=== PATIENT | male | born 1980 | race Caucasian/White ===

== ENCOUNTER 2018-01-13 03:31 | Inpatient (IN) | payer OTHER, MEDICAID ==
[2018-01-12 20:00] VITALS: BP_SYST 139
[~2018-01-13] VITALS: Ht 170.2 cm; Wt 71.7 kg
[~2018-01-13 03:31] MED LIST: ATEN50TA PO; CITA40TA22 PO; IBUP-1017 PO; NEU300 PO; VENL150C2 PO
--- NOTE | 2018-01-13 03:33 | NUR ---
Placed in room 6 . Placed on teletypesetter monitor, blood pressure machine and pulse oximeter. To gown for exam. Side rails up.
--- NOTE | 2018-01-13 03:33 | NUR ---
Patient AAOx4, ambulatory. Patient states having a sudden onset of chest pain which started approximately 2 hours prior to ER visit. Patient also states having SOB at this time. Patient states current pain scale 8/10 at this time with a sharp sensation to center of chest. Patient states pain radiates to right shoulder. Patient denies dizziness, nausea, and vomiting at this time. Patient denies cough and denies any other complaints.
[2018-01-13 03:37] VITALS: BP_SYST 155
--- NOTE | 2018-01-13 03:50 | NUR ---
# 20 gauge angiocath placed to left AC. Use of asceptic technique. Opsite placed over site. Blood return noted. Blood for lab drawn from site. Flushed with 10 cc of normal saline. No evidence of infiltration noted. Patient tolerated well.
--- NOTE | 2018-01-13 03:58 | NUR ---
JODY Varner at bedside examining patient.
[2018-01-13 04:28] LABS: BILIRUBIN,URINE NEGATIVE (NEGATIVE); BLOOD, URINE NEGATIVE (NEGATIVE); CLARITY/URINE CLEAR (CLEAR); COLOR,URINE YELLOW (YELLOW); GLUCOSE,URINE NEGATIVE (NEGATIVE); KETONES,URINE NEGATIVE (NEGATIVE); LEUKOCYTE ESTERASE ,URINE NEGATIVE (NEGATIVE); NITRITE, URINE NEGATIVE (NEGATIVE); PROTEIN URINE TRACE (NEGATIVE)
[2018-01-13] MEDS ORDERED: WELSR100 PO (04:28)
--- NOTE | 2018-01-13 04:29 | NUR ---
Medication reconciliation completed with information provided by patient. Any prior medication reconciliation on file was reviewed and corrected.
[2018-01-13] MEDS ORDERED: ASPIRIN 81 MG TAB.CHEW PO ONE (04:30)
[2018-01-13 04:36] LABS: BASOPHILS # (AUTO) 0.1 K/uL (0.0-0.2); BASOPHILS % (AUTO) 0.9 % (0.0-2.0); EOSINOPHILS % (AUTO) 0.1 % (0.0-4.0); HEMOGLOBIN 14.4 g/dL (14.0-18.0); LYMPHOCYTES # (AUTO) 1.3 K/uL (1.0-5.5); LYMPHOCYTES % (AUTO) 17.4 % (20.5-51.5); MEAN CORPUSCULAR HEMOGLOBIN 27 pg (27-31); MEAN CORPUSCULAR HGB CONC 33 % (32-36); MEAN CORPUSCULAR VOLUME 84 fL (79.0-98.0); MONOCYTES # (AUTO) 0.8 K/uL (0.0-1.0); MONOCYTES % (AUTO) 11.3 % (1.7-9.3); NEUTROPHILS # (AUTO) 5.2 K/uL (1.8-7.7); NEUTROPHILS % (AUTO) 70.3 % (40.0-70.0); PLATELET COUNT (AUTO) 385 K/uL (130-430); RED BLOOD CELL COUNT(AUTO) 5.26 MIL/uL (4.2-6.2); RED CELL DISTRIBUTION WIDTH 16.3 % (9.0-15.0); WHITE BLOOD COUNT (AUTO) 7.4 K/uL (4.8-10.8)
[2018-01-13 04:43] LABS: ANION GAP 10 (5-15); CALCIUM 9.5 mg/dL (8.4-11.0); CHLORIDE 103 mmol/L (98-107); CREATININE 1.09 mg/dL (0.55-1.30); GLUCOSE 92 mg/dL (70-99); POTASSIUM 3.4 mmol/L (3.5-5.1); SODIUM SERUM 142 mmol/L (136-145); UREA NITROGEN, BLOOD 10 mg/dL (8-21)
[2018-01-13 04:45] LABS: BARBITURATE, URINE NEGATIVE (NEG <=200); BENZODIAZEPINE, URINE NEGATIVE (NEG <=150); CANNABINOID, URINE NEGATIVE (NEG <=50); COCAINE, URINE NEGATIVE (NEG <=150); METHAMPHETAMINES SCREEN,URINE POSITIVE (NEG <=500); OPIATE, URINE NEGATIVE (NEG <=100); PHENCYCLIDINE SCREEN,URINE NEGATIVE (NEG <=25); UR TRICYCLIC ANTIDEPRESSANTS NEGATIVE (NEG <=300); URINE AMPHETAMINE POSITIVE (NEG <=500); URINE METHADONE NEGATIVE (NEG <=200); URINE OXYCODONE SCREEN NEGATIVE (NEG <=100); URINE PROPOXYPHENE SCREEN NEGATIVE (NEG <=300)
[2018-01-13 04:47] LABS: GFR AFRICAN AMERICAN 97 mL/min (>90)
[2018-01-13 04:52] LABS: ALANINE AMINOTRANSFERASE 32 U/L (12-78); ASPARTATE AMINOTRANSFERASE 16 U/L (10-37); TOTAL BILIRUBIN 0.6 mg/dL (0.0-1.0)
[2018-01-13] MEDS ORDERED: NACL 0.9% 1,000 ML IV ONE (05:00)
[2018-01-13] MEDS ORDERED: MORPHINE 4 MG/ML INJ. SYRINGE IVP ONE (05:00)
--- NOTE | 2018-01-13 05:14 | NUR ---
Patient will be admitted to care of Dr. Cheema. Admitted to tele unit. Will go to room 135. Belongings list completed. Summary report printed. Report given to Eligio QUEZADA at bedside.
[2018-01-13] MEDS ORDERED: KETOROLAC TROMETHAMINE 15 MG VIAL IVP PRN (05:15)
[2018-01-13 05:28] VITALS: BP_SYST 137
--- NOTE | 2018-01-13 05:28 | NUR ---
ADMISSION NOTE Received patient from ER via gurney. Patient admitted with diagnosis of . Patient is awake, alert, oriented X 4. Patient oriented to hospital room, call light, toileting, pain management and safety-teach back done. Patient informed that mo will be his nurse and that their room number is 101a. Personal belongings checked and Belongings List documented. Call light within reach.
--- NOTE | 2018-01-13 06:05 | NUR ---
Initial RN notes Received pt from ED. Pt is homeless. AAOx4. VSS. Pt states pain is 4/10 tolerable at this time. Bolus 1L of normal saline given in ED. L. AC 20G no infiltration noted. Encouraged pt to use call light for assistance. Pt agreeable. Call light within reach. To endorse to am nurse.
--- NOTE | 2018-01-13 06:26 | NUR ---
CONSULTATION PAGED/CALLED Reason for Consultation: CHEST PAIN Person Who was Notified: TORSTEN Consulting Physician: MARLYS Quantometer Operator Specialty: CARDIO Ordering Physician: GERARDO
[2018-01-13 07:53] VITALS: BP_SYST 131
--- NOTE | 2018-01-13 08:00 | NUR ---
Note Pt sitting up in bed with tele unit attached and intact at this time. No SOB/resp distress or chest pain/discomfort noted at this time. IV in left AC intact and patent at this time. Call light within reach.
--- NOTE | 2018-01-13 09:22 | NUR ---
Nutrition Update Heber Scale 18 noted. Pt admitted for chest pain. Diet: cardiac BMI: 24.7 kg/m2 RD to follow per nutrition care standards.
[2018-01-13 09:48] LABS: CHOLESTEROL 184 mg/dL (<200); HDL CHOLESTEROL 56 mg/dL (>45); LDL CHOLESTEROL 115 mg/dL (<100); TRIGLYCERIDES 41 mg/dL (30-150)
[2018-01-13] MEDS: METOPROLOL SUCCINATE 50 MG TAB.SR.24H (TOPROL XL) PO SCH (10:02)
--- NOTE | 2018-01-13 10:20 | NUR ---
Note Pt was seen by Dr Ramos at 0915am. Orders given and carried out. Pt denies any needs at this time. Call light within reach.
[2018-01-13 12:14] VITALS: BP_SYST 132
--- NOTE | 2018-01-13 14:05 | NUR ---
Note Pt resting in bed. Denies any needs at this time. Call light within.
[2018-01-13] MEDS ORDERED: POTASSIUM CHLORIDE 20 MEQ/PKT PACKET PO ONE (15:15)
[2018-01-13] MEDS ORDERED: PANTOPRAZOLE SODIUM 40 MG/VIAL (PROTONIX) IVP ONE (15:15)
--- NOTE | 2018-01-13 16:10 | NUR ---
Note Pt was seen and assessed by Dr Cheema. Orders were written and carried out. No needs noted. Call light within reach.
[2018-01-13 16:34] VITALS: BP_SYST 143
[2018-01-13] MEDS: KCL 20 mEq in D5NS 1000 mL 1,000 ML IV SCH (17:06)
--- NOTE | 2018-01-13 17:30 | NUR ---
Note Pt resting in bed watching television. IVF's were infusing at this time through left AC IV site. No needs noted. Tele unit attached and intact all shift. Pt was checked on q1' and PRN all shift for needs and care. Call light within reach.
--- NOTE | 2018-01-13 18:25 | NUR ---
Note Pt resting in bed and is stable. No needs noted at this time. IVF's infusing well through left AC IV site. Tele unit has been attached and intact all shift. Pt was checked on q1' and PRN all shift for needs and care. No SOB/resp distress or severe chest pain/discomfort noted. Call light within reach.
--- NOTE | 2018-01-13 19:25 | NUR ---
OPENING NOTE RECEIVED PT AND REPORT FROM DAY SHIFT NURSE. PT IS SITTING UP AWAKE IN BED. PT ABLE TO VERBALIZE NEEDS. IV IS INTACT AND PATENT RUNNING IVF PER ORDERS. FALL AND SAFETY PRECAUTIONS IN PLACE. BED LOCKED IN LOWEST POSITION. CALL LIGHT WITH PT WILL CONTINUE TO MONITOR.
[2018-01-13 20:00] VITALS: BP_SYST 139
--- NOTE | 2018-01-14 00:14 | NUR ---
CHEST PAIN: PT CALLED ANS STATED THAT PT IS HAVING CHEST PAIN TO THE LEFT CHEST RADIATING TO THE LEFT ARM , ITS SHARP PAIN PER PT . WILL GIVE NITRO PER ORDER
[2018-01-14] MEDS: NITROGLYCERIN 0.4 MG TAB.SUBL SL PRN ×3 (00:15→00:25)
--- NOTE | 2018-01-14 00:28 | NUR ---
RN NOTES: PT IS STILL C/O MID TO LEFT CHEST PAIN RADIATING TO THE LEFT ARM , BP 120/ 86 , HR 114, SAT 96% ; WILL GIVE TORADOL PER ORDER
--- NOTE | 2018-01-14 00:41 | NUR ---
PRN PAIN MEDICATION ADMINISTERED PRN PAIN MEDICATION PER ORDERS. CALL LIGHT WITH PT. WILL CONTINUE TO MONITOR.
[2018-01-14 00:58] VITALS: BP_SYST 130
--- NOTE | 2018-01-14 02:40 | NUR ---
MARLYS, ORDERS INFORMED DR. FRANKEL OF PATIENTS COMPLAINT OF CHEST PAIN RADIATING TO LEFT SHOULDER, WITH VITALS WITHIN NORMAL LIMITS. INFORMED MD THAT PT IS POSITIVE FOR AMPHETAMINES. NEW ORDER RECEIVED, WILL FOLLOW THROUGH WITH ORDERS.
[2018-01-14] MEDS: MORPHINE 2 MG/ML INJ. SYRINGE IVP PRN ×2 (03:03→16:28)
--- NOTE | 2018-01-14 03:03 | NUR ---
PRN PAIN ADMINISTERED PRN PAIN MEDICATION PER ORDERS. BED ALARM ON. WILL CONTINUE TO MONITOR.
[2018-01-14] MEDS: KCL 20 mEq in D5NS 1000 mL 1,000 ML IV SCH ×3 (03:06→21:35)
--- NOTE | 2018-01-14 04:20 | NUR ---
ROUNDING NOTE PT STATES HIS PAIN IS MUCH BETTER NOW. NO OTHER NEEDS. WILL CONTINUE TO MONITOR.
[2018-01-14 06:27] LABS: BASOPHILS # (AUTO) 0.1 K/uL (0.0-0.2); BASOPHILS % (AUTO) 0.8 % (0.0-2.0); CALCIUM 8.5 mg/dL (8.4-11.0); CREATININE 0.97 mg/dL (0.55-1.30); EOSINOPHILS # (AUTO) 0.2 K/uL (0.0-0.4); EOSINOPHILS % (AUTO) 2.9 % (0.0-4.0); HEMATOCRIT 37.4 % (36-54); HEMOGLOBIN 12.6 g/dL (14.0-18.0); LYMPHOCYTES # (AUTO) 1.4 K/uL (1.0-5.5); LYMPHOCYTES % (AUTO) 20.8 % (20.5-51.5); MEAN CORPUSCULAR HEMOGLOBIN 28 pg (27-31); MEAN CORPUSCULAR HGB CONC 34 % (32-36); MEAN CORPUSCULAR VOLUME 84 fL (79.0-98.0); MONOCYTES # (AUTO) 0.9 K/uL (0.0-1.0); MONOCYTES % (AUTO) 13.3 % (1.7-9.3); NEUTROPHILS % (AUTO) 62.2 % (40.0-70.0); PLATELET COUNT (AUTO) 346 K/uL (130-430); POTASSIUM 3.7 mmol/L (3.5-5.1); RED BLOOD CELL COUNT(AUTO) 4.46 MIL/uL (4.2-6.2); RED CELL DISTRIBUTION WIDTH 15.6 % (9.0-15.0); WHITE BLOOD COUNT (AUTO) 6.6 K/uL (4.8-10.8)
[2018-01-14] MEDS: PANTOPRAZOLE SODIUM 40 MG/VIAL (PROTONIX) IVP SCH (06:40)
--- NOTE | 2018-01-14 06:40 | NUR ---
MEDICATION ADMINISTRATION ADMINISTERED MEDICATION PER ORDER. PT RESTING IN BED. WILL CONTINUE TO MONITOR.
--- NOTE | 2018-01-14 07:20 | NUR ---
CLOSING NOTE ENDORSED CARE AND REPORT TO DAY SHIFT NURSE. PT IS LAYING AWAKE IN BED. PT DENIES ANY PAIN. ALL NEEDS MET THROUGHOUT SHIFT. PT IN STABLE CONDITION. PT NPO FOR US ABD TODAY, ENDORSED TO DAY SHIFT. CHEST PAIN WAS MANAGED WITH PRN PAIN MEDICATION ON SHIFT. CALL LIGHT WITH PT.
--- NOTE | 2018-01-14 07:35 | NUR ---
AM rounds patient resting in bed, a/ox4, states mild but tolerable pain level, assessment complete, IV Line is patent and infusing well, educated the patient on plan of care and call light system and to call for any assistance, patient verbalized understanding, continuing to monitor the patient, bed in lowest position, two side rails up, call light within reach, fall and aspiration precautions in place.
[2018-01-14 08:14] VITALS: BP_SYST 136
[2018-01-14] MEDS: buPROPion HCL 100 MG TABLET.SA PO SCH (08:35)
[2018-01-14] MEDS: ASPIRIN 81 MG TAB.CHEW PO SCH (08:36)
[2018-01-14] MEDS: METOPROLOL SUCCINATE 50 MG TAB.SR.24H (TOPROL XL) PO SCH (08:36)
--- NOTE | 2018-01-14 08:37 | NUR ---
Medications patient resting in bed, awake, states mild but tolerable pain level at this time, educated him on medications uses and potential side effects, he verbalized understanding and tolerated well, patient provided with small amount of water, still NPO pending ABD US this morning, continuing to monitor the patient, bed in lowest position, two side rails up, call light within reach, fall and aspiration precautions in place.
[2018-01-14] MEDS ORDERED: ATENOLOL 50 MG TABLET (TENORMIN) PO SCH (09:00)
--- NOTE | 2018-01-14 10:13 | NUR ---
ABD US complete at this time, patient provided with water and called for Full Liquid tray from [facility].
--- NOTE | 2018-01-14 11:52 | NUR ---
RN Rounds patient resting in bed, denies pain, waiting on lunch tray, no other needs at this time, bed in lowest position, two side rails up, bed alarm on, call light within reach, fall and aspiration precautions in place.
[2018-01-14 12:00] VITALS: BP_SYST 113
--- NOTE | 2018-01-14 14:24 | NUR ---
Transfer of Care to Ana QUEZADA, patient in stable condition.
--- NOTE | 2018-01-14 14:26 | NUR ---
Opening Note received report from Junaid RN, pt resting in bed, A&Ox4, respirations even and unlabored on room air, pt reports pain is controlled at this time, pt denies any chest pain or shortness of breath, IV site clean, dry, intact, and infusing well, no acute distress noted, pt educated on use of call light and asked to call for assistance, pt verbalized understanding, call light in reach, bed in low position, bed alarm on, fall and aspiration precautions in place.
[2018-01-14 15:17] VITALS: BP_SYST 110
--- NOTE | 2018-01-14 16:33 | NUR ---
MD Rounds/Pain Management Rounds with Dr. Cheema, pt complaint of pain to chest 11/29, pt educated on use and side effects of PRN pain medication, pt verbalized understanding, tolerated medication administration well, no additional needs at this time, fall and aspiration precautions in place.
--- NOTE | 2018-01-14 17:17 | NUR ---
GI consult called: for Dr. Castellano (Dr. Eastman seph[employer] operations consultant), regarding acute abdominal pain, ordered by Dr. Cheema, spoke with Jie.
--- NOTE | 2018-01-14 17:37 | NUR ---
Pain Management/Spoke with MD pt states that he is still having chest pain 09/29, pt refusing PRN toradol, pt offered assistance with repositioning, pt refused, MD informed, no change in orders.
[2018-01-14] MEDS ORDERED: HYDROcodone/ACETAMIN 10-325 MG TAB PO PRN (17:45)
[2018-01-14] MEDS ORDERED: HYDROcodone/ACETAMIN 10-325 MG TAB PO ONE (17:45)
--- NOTE | 2018-01-14 17:59 | NUR ---
Medication pt educated on medication use and side effects, pt verbalized understanding, tolerated medication administration well, no additional needs at this time, fall and aspiration precautions in place.
--- NOTE | 2018-01-14 18:30 | NUR ---
Closing Note pt resting in bed, A&Ox4, respirations even and unlabored, pain controlled at this time, no acute distress noted, IV site clean, dry, and intact, no additional needs at this time, pt educated on use of call light and asked to call for assistance, pt verbalized understanding, call light in reach, bed in low position, bed alarm on, fall and aspiration precautions in place, will endorse care to night coordinator RN.
--- NOTE | 2018-01-14 19:20 | NUR ---
OPENING NOTE RECEIVED PT REPORT FROM DAY SHIFT NURSE AT BEDSIDE. PT RESTING IN BED WITH EYES OPEN, CHEST RISE EVEN AND UNLABORED. PT IS AOX4, PT DENIES PAIN AT THIS TIME. NO SOB NOTED, NO DISTRESS NOTED. PT'S IV ON LEFT AC 20G, IVF INFUSING AT ORDERED RATE. IV IS PATENT, DRY AND INTACT. PT ORIENTED TO HOSPITAL ROOM, PT INSTRUCTED HOW TO USE CALL LIGHT AND ROOM PHONE. PT INSTRUCTED TO US CALL LIGHT OR PHONE FOR ASSISTANCE. PT VERBALIZED UNDERSTANDING. PT'S POC DISCUSSED WITH PT. PT REPORTS NO NEEDS AT THIS TIME. SAFETY MEASURES IN PLACE, CALL LIGHT/ ROOM PHONE WITHIN REACH, BED ALARM ON, BED RAILS UP X2, BED WHEELS LOCKED, BED IN LOWEST POSITION, BEDSIDE TABLE WITHIN REACH. NO OTHER NEEDS. WILL CONTINUE TO MONITOR PT. WILL CONTINUE PT'S POC.
[2018-01-14 19:45] VITALS: BP_SYST 112
--- NOTE | 2018-01-14 19:45 | NUR ---
RN ROUNDS PT RESTING IN BED WITH EYES OPEN, CHEST RISE EVEN AND UNLABORED. PT DENIES PAIN AT THIS TIME. NO SOB NOTED, NO DISTRESS NOTED. IVF INFUSING AT ORDERED RATE. VITAL SIGNS WNL. SAFETY MEASURES IN PLACE, CALL LIGHT/ ROOM PHONE WITHIN REACH, BED ALARM ON, BED RAILS UP X2, BED WHEELS LOCKED, BED IN LOWEST POSITION, BEDSIDE TABLE WITHIN REACH. NO OTHER NEEDS. WILL CONTINUE TO MONITOR PT. WILL CONTINUE PT'S POC.
--- NOTE | 2018-01-14 21:35 | NUR ---
RN ROUNDS PT RESTING IN BED WITH EYES OPEN, CHEST RISE EVEN AND UNLABORED. NO SOB NOTED, NO DISTRESS NOTED. PT DENIES PAIN AT THIS TIME. SCHEDULED MEDICATIONS ADMINISTERED ORDERED, IVF INFUSING AT ORDERED RATE. PT TOLERATING WELL. NO OTHER NEEDS AT THIS TIME. SAFETY MEASURES IN PLACE, CALL LIGHT/ ROOM PHONE WITHIN REACH, BED ALARM ON, BED RAILS UP X2, BED WHEELS LOCKED, BED IN LOWEST POSITION, BEDSIDE TABLE WITHIN REACH. WILL CONTINUE TO MONITOR PT. WILL CONTINUE PT'S POC.
--- NOTE | 2018-01-14 23:50 | NUR ---
RN ROUNDS PT RESTING IN BED WITH EYES CLOSED. CHEST RISE EVEN AND UNLABORED. NO SOB NOTED, NO DISTRESS NOTED. NO S/S OF PAIN NOTED. SAFETY MEASURES IN PLACE, CALL LIGHT/ ROOM PHONE WITHIN REACH, BED ALARM ON, BED RAILS UP X2, BED WHEELS LOCKED, BED IN LOWEST POSITION, BEDSIDE TABLE WITHIN REACH. NO NEEDS AT THIS TIME. WILL CONTINUE TO MONITOR PT. WILL CONTINUE PT'S POC.
[2018-01-15 00:19] VITALS: BP_SYST 107
[2018-01-15] MEDS: PANTOPRAZOLE SODIUM 40 MG/VIAL (PROTONIX) IVP SCH (06:10)
--- NOTE | 2018-01-15 06:15 | NUR ---
RN ROUNDS PT RESTING IN BED WITH EYES CLOSED. CHEST RISE EVEN AND UNLABORED. NO SOB NOTED, NO DISTRESS NOTED. NO S/S OF PAIN NOTED. PT EASILY AWAKEN. PT'S SCHEDULED MEDICATIONS ADMINISTERED ORDERED. IVF INFUSING WELL. PT TOLERATED WELL. SAFETY MEASURES IN PLACE, CALL LIGHT/ ROOM PHONE WITHIN REACH, BED ALARM ON, BED RAILS UP X2, BED WHEELS LOCKED, BED IN LOWEST POSITION, BEDSIDE TABLE WITHIN REACH. NO NEEDS AT THIS TIME. WILL CONTINUE TO MONITOR PT. WILL CONTINUE PT'S POC.
[2018-01-15] MEDS: KCL 20 mEq in D5NS 1000 mL 1,000 ML IV SCH ×2 (06:16→16:41)
--- NOTE | 2018-01-15 06:55 | NUR ---
CLOSING NOTE WILL ENDORSE PT REPORT TO DAY SHIFT NURSE. PT RESTING IN BED WITH EYES CLOSED, CHEST RISE EVEN AND UNLABORED. PT IS AOX4, NO SOB NOTED, NO DISTRESS NOTED. PT'S IV ON LEFT AC 20G, IVF INFUSING AT ORDERED RATE. IV IS PATENT, DRY AND INTACT. SAFETY MEASURES IN PLACE, CALL LIGHT/ ROOM PHONE WITHIN REACH, BED ALARM ON, BED RAILS UP X2, BED WHEELS LOCKED, BED IN LOWEST POSITION, BEDSIDE TABLE WITHIN REACH. NO OTHER NEEDS. WILL CONTINUE TO MONITOR PT. WILL CONTINUE PT'S POC.
[2018-01-15 07:50] VITALS: BP_SYST 108
--- NOTE | 2018-01-15 07:50 | NUR ---
Opening note. Pty sitting in bed, no s/s of SOB or distress, no c/o pain at this time, pt has c/o being hungry and is on full liquid diet. Reviewed care plan and safety precautions. Reviewed bed alarm and call light systems. Bed in low locked position with call light within reach and bed alarm on.
[2018-01-15] MEDS: METOPROLOL SUCCINATE 50 MG TAB.SR.24H (TOPROL XL) PO SCH (09:52)
[2018-01-15] MEDS: buPROPion HCL 100 MG TABLET.SA PO SCH (09:53)
[2018-01-15] MEDS: ASPIRIN 81 MG TAB.CHEW PO SCH (09:53)
--- NOTE | 2018-01-15 10:00 | NUR ---
Rounding Pt assisted to restroom and back to chair. No s/s of SOB or distress, no c/o pain or discomfort. Pt wants a sandwich but we are awaiting physician clarification for meals.
--- NOTE | 2018-01-15 11:15 | NUR ---
PAGED PAGED JESÚS ARIAS AT [phone] SPOKE WITH SHERYL.
--- NOTE | 2018-01-15 11:31 | NUR ---
Dr Eastman returned call Physician clarified diet order for patient, patient may have regular diet at lunch, clear liquid at dinner and NPO after midnight for EGD tomorrow.
--- NOTE | 2018-01-15 11:32 | NUR ---
Continuation of care Will give report and endorse care to different nurse on shift as we are changing assignments
--- NOTE | 2018-01-15 11:36 | NUR ---
Rounding Pt assisted to restroom and back to bed. No s/s of SOB or distress, no c/o pain or discomfort. Pt unhappy with food status, told him I have to wait for new order if diet is changed, currently moved to clear liquid per Dr Eastman's order this morning. He will talk to Dr. Cheema.
[2018-01-15 12:00] VITALS: BP_SYST 95
--- NOTE | 2018-01-15 13:14 | NUR ---
Paging Dr. Eastman: Paging Dr. Eastman in regards to patient refusing EGD for tomorrow. Awaiting callback.
--- NOTE | 2018-01-15 14:00 | NUR ---
Rounding: Patient laying in bed asleep. No signs of pain or discomfort. Breathing is even and unlabored with no distress noted. No needs at this time. Will continue to monitor.
--- NOTE | 2018-01-15 15:54 | NUR ---
Spoke to Dr. Eastman: Spoke to Dr. Eastman, made aware that patient is refusing EGD. Per Dr. Eastman put him back on a regular diet.
[2018-01-15 16:00] VITALS: BP_SYST 100
--- NOTE | 2018-01-15 16:09 | NUR ---
Rounding: Patient laying in bed resting. Patient denies pain and discomfort. Breathing is even and unlabored with no distress noted. No current needs. Safety precautions in place and call light within reach. Will continue to monitor.
--- NOTE | 2018-01-15 18:47 | NUR ---
Closing Note: Patient laying in bed resting. Patient denies pain and discomfort. Breathing is even and unlabored with no distress noted. IV patent and intact running IV fluids per MD order. Patient in stable condition. Safety precautions in place; bed in lowest position, wheels locked, side rails x3, bed alarm activated and call light within reach. All needs met. Will endorse plan of care to NOC, nurse.
--- NOTE | 2018-01-15 19:22 | NUR ---
OPENING NOTES RECEIVED PATIENT IN BED AAOX4. DENIES ANY PAIN THIS TIME. BREATHING UNLABORED ON ROOMA AIR. IVF INFUSING ORDERED. PLAN OF CARE REVIEWED WITH PATIENT. CALL LIGHT WITHIN EASY REACH.
[2018-01-15 19:56] VITALS: BP_SYST 93
--- NOTE | 2018-01-15 21:00 | NUR ---
PAGED PAGED DR CARRILLO PATIENT REQUESTING SOMETHING FOR SLEEP.
[2018-01-15] MEDS ORDERED: TEMAZEPAM 15 MG CAPSULE PO PRN (21:30)
--- NOTE | 2018-01-15 22:27 | NUR ---
PAIN MGT PATIENT MEDICATED WITH NORCO PER PATIENT REQUEST FOR C/O PAIN ON HIS MIDDLE RIB CAGE. PATIENT INSTRUCTED OF POSSIBLE SIDE EFFECTS. SAFETY INSTRUCTIONS PROVIDED. PATIENT VERBALIZES UNDERSTANDING.
[2018-01-15 22:29] VITALS: BP_SYST 100
[2018-01-16 00:17] VITALS: BP_SYST 93
--- NOTE | 2018-01-16 00:55 | NUR ---
ROUNDS PATIENT RESTING IN BED. BREATHING UNLABORED ON ROOM AIR. IVF INFUSING. IV LINE INTACT. CALL LIGHT WITHIN EASY REACH.
--- NOTE | 2018-01-16 03:50 | NUR ---
ROUNDS PATIENT RESTING IN BED. NO DISTRESS NOTED. BED ALARM ON. CALL LIGHT WITHIN EASY REACH.
[2018-01-16] MEDS: KCL 20 mEq in D5NS 1000 mL 1,000 ML IV SCH ×2 (04:06→14:08)
[2018-01-16 04:10] VITALS: BP_SYST 94
[2018-01-16] MEDS: PANTOPRAZOLE SODIUM 40 MG/VIAL (PROTONIX) IVP SCH (06:07)
--- NOTE | 2018-01-16 06:35 | NUR ---
CLOSING NOTES PATIENT IN BED. DENIES PAIN. IVF INFUSING WITH IV LINE INTACT. NEEDS ATTENDED. CALL LIGHT WITHIN EASY REACH.
[2018-01-16 06:42] LABS: PROTHROMBIN TIME 10.3 SECS (9.5-12.5)
[2018-01-16 08:00] VITALS: BP_SYST 111
--- NOTE | 2018-01-16 08:31 | NUR ---
AM rounds patient resting in bed, a/ox4, denies pain, assessment complete, IV Line is patent and infusing well, educated the patient on plan of care and call light system and to call for any assistance, patient verbalized understanding, continuing to monitor the patient, bed in lowest position, two side rails up, call light within reach, fall and aspiration precautions in place.
[2018-01-16] MEDS: ASPIRIN 81 MG TAB.CHEW PO SCH (09:41)
[2018-01-16] MEDS: METOPROLOL SUCCINATE 50 MG TAB.SR.24H (TOPROL XL) PO SCH (09:41)
[2018-01-16] MEDS: buPROPion HCL 100 MG TABLET.SA PO SCH (09:41)
--- NOTE | 2018-01-16 09:43 | NUR ---
Medications patient resting in bed, awake, denies pain, educated on medications uses and potential side effects, he verbalized understanding and tolerated well, no other needs at this time, bed in lowest position, two side rails up, call light within reach, fall and aspiration precautions in place, continuing to monitor.
--- NOTE | 2018-01-16 11:30 | NUR ---
RN rounds patient resting in bed, requested a sandwich and can of sprite prior to lunch, provided with food, patient denies any pain, in stable condition, continuing to monitor, bed in lowest position, two side rails up, call light within reach, fall and aspiration precautions in place, IV line is patent and infusing well.
[2018-01-16 12:00] VITALS: BP_SYST 106
--- NOTE | 2018-01-16 14:06 | NUR ---
DC Planning: late entry: Faxed referral inquiry to [facility] this am. After he reviewed the snf admission. The pt. is not accepted dt no skilled needs. Dr Cheema notified.
--- NOTE | 2018-01-16 14:12 | NUR ---
RN rounds patient resting in bed, eyes closed, breathing is even and unlabored, no signs of distress, easy to wake, new bag of IV fluids hung and infusing well, IV line is patent, no other needs at this time, bed in lowest position, two side rails up, call light within reach, fall and aspiration precautions in place, continuing to monitor.
[2018-01-16 15:00] VITALS: BP_SYST 102
[2018-01-16 15:26] VITALS: BP_SYST 106
--- NOTE | 2018-01-16 16:00 | NUR ---
Social Service Note: [employer] has provided pt's nurse with homeless resources to be given to pt upon discharge. [employer] will remain available for support and will follow up as needed.
--- NOTE | 2018-01-16 16:37 | NUR ---
RN rounds patient resting in bed, eyes closed, breathing is even and unlabored, no signs of distress, already informed patient of discharge and no bus voucher being available at this time, patient verbalized understanding and states he can leave after dinner, no other needs at this time, bed in lowest position, two side rails up, call light within reach, fall and aspiration precautions in place.
--- NOTE | 2018-01-16 18:20 | NUR ---
D/C Patient Patient given medication reconciliation form and D/C instructions. Exit Care provided. Patient verbalized understanding. MD discussed with patient the results and treatment provided. Ambulatory with steady gait for discharge to home. Patient in stable condition, ID band removed. IV catheter removed, intact and dressing applied, no active bleeding. Patient educated on pain management. All belongings sent with patient. PATIENT TO GO TO HIS FRIEND'S HOUSE TO STAY, ACCOUNTS RECEIVABLE REPRESENTATIVE PROVIDED RESOURCES FOR THE PATIENT.
== END 2018-01-16 18:15 | disposition home or self-care (01) | DRG 392 ==
LOC: SED 03:31 → STU 05:02 → SMU 01-14 16:17 → OBSVTOIN 01-14 16:17
PROVIDERS: ADMIT Family Medicine; ATTEND Family Medicine
DX: K21.9 Gastro-esophageal reflux disease without esophagitis (principal); F15.20 Other stimulant dependence, uncomplicated; I10 Essential (primary) hypertension; K29.70 Gastritis, unspecified, without bleeding; Z60.2 Problems related to living alone; E87.6 Hypokalemia; F32.9 Major depressive disorder, single episode, unspecified; F89 Unspecified disorder of psychological development; Z59.0 Homelessness; I25.2 Old myocardial infarction; Z90.49 Acquired absence of other specified parts of digestive tract; Z82.49 Family history of ischemic heart disease and other diseases of the circulatory system; Z79.899 Other long term (current) drug therapy; Z53.20 Procedure and treatment not carried out because of patient's decision for unspecified reasons
CPT/HCPCS: 36415; 71045; 76700-TC; 80048; 80053; 80061; 80307; 81003; 82150-TC; 82550-TC; 83690-TC; 84484; 85025; 85379; 85610-TC; 93005; 93306; 96361; 96374; 99285; C9113; G0378; J1885; J2270; J7030

== ENCOUNTER 2019-07-17 20:24 | Inpatient (IN) | payer OTHER, MEDICAID ==
[~2019-07-17] VITALS: Ht 170.2 cm; Wt 67.1 kg
[~2019-07-17 20:24] MED LIST changes: -CITA40TA22 PO; -IBUP-1017 PO; -NEU300 PO; -VENL150C2 PO; +WELSR100 PO
[2019-07-17 20:40] VITALS: BP_SYST 132
[2019-07-17 21:38] LABS: BASOPHILS # (AUTO) 0.1 K/uL (0.0-0.2); BASOPHILS % (AUTO) 1.3 % (0.0-2.0); EOSINOPHILS # (AUTO) 0.1 K/uL (0.0-0.4); EOSINOPHILS % (AUTO) 1.3 % (0.0-4.0); HEMATOCRIT 39.6 % (36-54); HEMOGLOBIN 12.9 g/dL (14.0-18.0); LYMPHOCYTES # (AUTO) 1.7 K/uL (1.0-5.5); LYMPHOCYTES % (AUTO) 24.4 % (20.5-51.5); MEAN CORPUSCULAR HEMOGLOBIN 28 pg (27-31); MEAN CORPUSCULAR HGB CONC 33 % (32-36); MEAN CORPUSCULAR VOLUME 85 fL (79.0-98.0); MONOCYTES # (AUTO) 0.7 K/uL (0.0-1.0); MONOCYTES % (AUTO) 10.6 % (1.7-9.3); NEUTROPHILS # (AUTO) 4.4 K/uL (1.8-7.7); NEUTROPHILS % (AUTO) 62.4 % (40.0-70.0); PLATELET COUNT (AUTO) 358 K/uL (130-430); RED BLOOD CELL COUNT(AUTO) 4.68 MIL/uL (4.2-6.2); RED CELL DISTRIBUTION WIDTH 16.2 % (9.0-15.0)
[2019-07-17 22:00] LABS: CALCIUM 8.7 mg/dL (8.4-11.0); CREATININE 0.77 mg/dL (0.55-1.30); POTASSIUM 3.4 mmol/L (3.5-5.1)
[2019-07-17 22:13] LABS: ALBUMIN 3.6 g/dL (3.4-4.8); TOTAL BILIRUBIN 0.4 mg/dL (0.0-1.0)
[2019-07-17 22:18] LABS: PROTHROMBIN TIME 9.7 SECS (9.5-12.5)
[2019-07-17] MEDS ORDERED: NITROGLYCERIN 0.4 MG TAB.SUBL SL ONE (23:00)
[2019-07-17] MEDS ORDERED: cefTRIAXone 1 GM IVPB PREMIX 50 ML IV ONE (23:00)
[2019-07-18] MEDS ORDERED: ATEN-41 PO (00:15)
[2019-07-18] MEDS ORDERED: MORPHINE 4 MG/ML INJ. SYRINGE IVP ONE (01:00)
[2019-07-18 01:08] VITALS: BP_SYST 138
[2019-07-18 08:21] VITALS: BP_SYST 149
[2019-07-18] MEDS ORDERED: ATENOLOL 50 MG TABLET (TENORMIN) PO ONE (09:45)
[2019-07-18 12:21] VITALS: BP_SYST 140
[2019-07-18] MEDS ORDERED: MORPHINE 2 MG/ML INJ. SYRINGE IVP PRN (14:45)
[2019-07-18 15:42] VITALS: BP_SYST 138
[2019-07-19] MEDS ORDERED: ATENOLOL 50 MG TABLET (TENORMIN) PO SCH (09:00)
== END 2019-07-18 21:52 | disposition left against medical advice (07) | DRG 206 ==
LOC: SED 20:24 → STU 23:44
PROVIDERS: ADMIT Internal Medicine Hospice and Palliative Medicine; ATTEND Internal Medicine Hospice and Palliative Medicine
DX: M94.0 Chondrocostal junction syndrome [Tietze] (principal); I10 Essential (primary) hypertension; F32.9 Major depressive disorder, single episode, unspecified; Z53.29 Procedure and treatment not carried out because of patient's decision for other reasons; I25.2 Old myocardial infarction; Z79.899 Other long term (current) drug therapy; Z82.49 Family history of ischemic heart disease and other diseases of the circulatory system; Z59.0 Homelessness; Z90.49 Acquired absence of other specified parts of digestive tract
CPT/HCPCS: 36415; 71045; 80053; 82550-TC; 83880; 84484; 85025; 85610-TC; 85730-TC; 87040-TC; 93005; 96365; 96375; 99285; G0378; J0696; J2270